=== PATIENT | female | born 1990 | race Caucasian/White ===

== ENCOUNTER → 2018-08-22 | Outpatient (CLI) | payer MEDICAID ==
[~2018-08-22] MED LIST: IBU800 M1 PO; PERCOCET 325 MG1 TA2 PO; PRENATAL VITAMI1 TA5 PO; PRENATAL1 TA1 PO; SLOW FE45 MG PO; ZOFRAN 4MG T4 MG/TAB PO
== END ==
LOC: COL.VAS 14:00
DX: Z13.6 Encounter for screening for cardiovascular disorders (principal); M79.89 Other specified soft tissue disorders

== ENCOUNTER 2018-12-20 10:53 | Inpatient (IN) | payer MEDICAID ==
[2018-12-20] VITALS (23 sets, daily range): BP systolic 106–166; BP diastolic 53–96; PULSE 61–90; TEMP 97.8–98.2
[~2018-12-20] VITALS: Ht 165.1 cm; Wt 101.8 kg
--- NOTE | 2018-12-20 11:00 | NUR ---
Patient ambulatory to LR6, changed into gown, FHR/TOCO monitor placed and explained. Patient states she started maya 0230 this am and denies leaking of fluid/vaginal bleeding. Dr. Farah at bedside and SVE per physician and orders to admit patient. 1120: IV started in right hand, blood obtained to lab, LR infusing. Plan of care discussed. Patient off monitor to void. Seferino given report and takes over care of patient.
[2018-12-20] MEDS ORDERED: CONCEPT DHA1 CAP PO (11:27)
[2018-12-20 12:09] LABS: BASO % 0.2 % (0.0-2.0); EOS % 0.3 % (0-4.0); GRAN # 10.1 (1.4-6.5); HEMATOCRIT 38.8 % (37.0-47.0); HEMOGLOBIN 13.1 g/dl (12.5-16.0); LYMPH # 1.2 (1.2-3.4); LYMPH % 9.7 % (20.0-51.0); MEAN CELL VOLUME 90 fl (80.0-100.0); MEAN CORPUSCULAR HEMOGLOBIN 30 pg (27.0-31.0); MEAN CORPUSCULAR HGB CONC 34 g/dl (33.0-37.0); MEAN PLATELET VOLUME 11.7 fl (7.4-10.4); MONO # 0.7 (0.1-0.6); MONO % 6.1 % (1.7-9.3); PLATELET COUNT 277 K/mm3 (130-400); RED BLOOD COUNT 4.32 M/mm3 (4.10-5.30); REDCELL DISTRIBUTION WIDTH-CV 12.8 % (11.5-14.5)
--- NOTE | 2018-12-20 12:45 | NUR ---
1220- at patient bedside, AROM of fluids noted clear. Patient tolerated well, will continue to monitor
--- NOTE | 2018-12-20 14:00 | NUR ---
at patient bedside discuss plan of care, Patient requests epidural at this time. Lavell Perez PAPER BUNDLER notified. Will continue to monitor.
--- NOTE | 2018-12-20 14:30 | NUR ---
1415- Lavell Perez MACHINE TRACER at patient bedside for placement of epidural. Patient begining to not tolerate contractions, reporting intense pressure and pain. SVE completed and noted with change of 6-7/100/+1. notified of significant change. Patient up to edge of bed for placement of epdiural. 1423-Test dose given, patient tolerated well. 1430- Extra bolus dose given. Patient laid down to wedge left. Nurse remains at patient bedside.
--- NOTE | 2018-12-20 15:00 | NUR ---
1449- at patient bedside, SVE exam completed and patient noted complete, encouraged to begin pushing. Room prepped for delivery and Nursery RN notified. Counts completed and correct. Patient begins to push with contractions. 1501- Delivery of viable male to care of Nursery RN, onto mothers abdomen for drying and stimulation. Cord clamped by and cord cut by father of . remains on mothers abdomen. 1504- Perineum intact, and delivery of placenta. Pitocin started per protocol. Patient tolerated well, fundal massage performed as indicated. Will continue to monitor.
[2018-12-21] VITALS: BP 126/83; PULSE 66; TEMP 97.7
[2018-12-21 04:00] VITALS: BP 115/89; PULSE 90; TEMP 98.5
[2018-12-21 08:20] VITALS: BP 105/54; PULSE 66; TEMP 97.2
[2018-12-21] MEDS ORDERED: IBU800 M1 PO (12:47)
[2018-12-21] MEDS ORDERED: PERCOCET 325 MG1 TA2 PO (12:47)
[2018-12-21 14:10] VITALS: BP 116/72; PULSE 70; TEMP 97
== END 2018-12-21 17:45 | disposition home or self-care (01) | DRG 807 ==
LOC: LDRO 10:53 → LDR 11:09 → OB 11:09
PROVIDERS: ADMIT Obstetrics & Gynecology
PROC: 10E0XZZ Delivery of Products of Conception, External Approach (ICD-10-PCS; principal; 2018-12-20)
DX: O69.2XX0 Labor and delivery complicated by other cord entanglement, with compression, not applicable or unspecified (principal); Z37.0 Single live birth; Z3A.39 39 weeks gestation of pregnancy
CPT/HCPCS: J2400; J2590; J7120

== ENCOUNTER → 2018-12-27 | Outpatient (CLI) | payer MEDICAID ==
[~2018-12-27] MED LIST changes: +CONCEPT DHA1 CAP PO
--- NOTE | 2018-12-27 14:03 | NUR ---
Pt, Marie Wells, presents for outpatient consult with one week old baby boy, Esau Wells, with concerns about sore nipples and possible tongue tie. Esau was born on [birth year] and weighed 6#8oz (2948gms). He was seen by Dr. Mcbride on 12/24/18 and pt recalls his weight to be 6#3.8oz. Today he weighs 6#12.7oz (3080gm). Pt reports Esau nurses q 2-3 hours, she supplements with about 1oz EBM after 3 or 4 feedings daily, and pumps about that many times throughout the day as well. Esau does have a visable and sublingual frenulum but is able to extend and keep it across the gum line with suck evaluation. He has a slight rise in his palate that may make getting a deeper latch more difficult, but once he is latch pt reports the pain is improved from earlier in the week. After Esau has a gain of 2.4oz (70 gms). POC: Breastfeed ad doron, consider other comfort measures if baby not completely content after nursing as intake and weight gains are adequate. Discussed monitoring feeding effort and effectiveness before seeking treatment of tongue tie. F/U: As desired. Questions invited and answered.
== END ==
LOC: LAC 13:04
DX: Z39.1 Encounter for care and examination of lactating mother (principal); Z71.89 Other specified counseling